=== PATIENT | female | born 1975 | race Caucasian/White ===

== ENCOUNTER → 2016-07-13 | Outpatient (CLI) | payer OTHER ==
[~2016-07-13] MED LIST: LEVO150T PO; MULTTAB58 PO; OMEP20CA9 PO; SERT50TA PO; VITAMIN B-12 OTC PO
--- NOTE | 2016-07-13 13:07 | DIAGNOSTIC IMAGING REPORT ---
MRI right knee RIGHT LOWER EXT JOINT WITHOUT CLINICAL HISTORY: RIGHT KNEE PAIN Right pain TECHNIQUE: MRI multi axial acquisition COMPARISON STUDY: 08/10/2013 FINDINGS: Signal characteristics the osseous structures are unremarkable throughout. There is no evidence for chondromalacia patella. The patellar retinaculum are intact. There is no significant popliteal cyst. Anterior and posterior cruciate ligaments are unremarkable. The collateral ligaments structures are intact. Evaluation of menisci shows both medial as well as lateral meniscus to be generally unremarkable in overall configuration. There is a very small hairline intrameniscal tear posterior horn medial meniscus. This does not extend to an articular services. IMPRESSION: 1. Very small hairline tear on an intrameniscal basis posterior horn medial meniscus. 2. This does not extend to an articular surface. 3. Study is otherwise unremarkable. Electronically signed by: Obey Hector M.D. 07/13/2016 1:05 PM Dictated Date/Time: 07/13/2016 1:00 PM
== END | disposition home or self-care (01) ==
LOC: C.MRI 12:12
PROVIDERS: ATTEND Orthopaedic Surgery
DX: M25.561 Pain in right knee (principal)

== ENCOUNTER → 2016-11-24 | Outpatient (CLI) | payer OTHER ==
[2016-11-24 10:01] LABS: CHOLESTEROL/HDL RATIO 2.9
== END | disposition home or self-care (01) ==
LOC: C.LAB 06:43
PROVIDERS: ATTEND Family Medicine
DX: Z13.220 Encounter for screening for lipoid disorders (principal)

== ENCOUNTER → 2016-12-20 | Outpatient (CLI) | payer OTHER ==
[2016-12-20 17:28] LABS: BASO % 0.5 %; BASO ABS # 0.04 K/uL (0-0.2); COMPLETE YES; EOS % 1.9 %; HEMATOCRIT 40.8 % (37-47); IG% 0.1 %; LYMPH % 38.3 %; MEAN CELL VOLUME 91.5 fL (80-100); MEAN CORPUSCULAR HEMOGLOBIN 30.5 pg (25-34); MEAN CORPUSCULAR HGB CONC 33.3 g/dl (32-36); MEAN PLATELET VOLUME 10.9 fL (7.4-10.4); MONO % 5.4 %; NEUT % 53.8 %; PLATELET COUNT 258 K/uL (130-400); RED BLOOD COUNT 4.46 M/uL (4.2-5.4)
[2016-12-20 18:07] LABS: ALT/SGPT 22 U/L (12-78); BLOOD UREA NITROGEN 19 mg/dl (7-18); BUN/CREATININE RATIO 15.9 (10-20); C-REACTIVE PROTEIN < 0.29 mg/dl (0-0.29); CARBON DIOXIDE 27 mmol/L (21-32); CHLORIDE 107 mmol/L (98-107); GLUCOSE 100 mg/dl (70-99); POTASSIUM 4.2 mmol/L (3.5-5.1); SODIUM 142 mmol/L (136-145)
[2016-12-20 18:18] LABS: ALB/GLOB RATIO 0.9 (0.9-2); ALKALINE PHOSPHATASE 50 U/L (45-117); AST/SGOT 16 U/L (15-37); RHEUMATOID FACTOR < 10.0 U/mL (0-15)
[2016-12-20 18:26] LABS: LYME DISEASE AB IGG NEG (NEG)
[2016-12-20 18:49] LABS: LYME DISEASE AB IGM POS (NEG)
[2016-12-23 03:44] LABS: ANTI-SS-A <1.0 NEG AI (<1.0 NEG); ANTI-SS-B <1.0 NEG AI (<1.0 NEG)
[2016-12-25 08:24] LABS: 18KDIGG BAND NONREACTIVE (NONREACTIVE); 23KDIGG BAND NONREACTIVE (NONREACTIVE); 23KDIGM BAND REACTIVE (NONREACTIVE); 28KDIGG BAND NONREACTIVE (NONREACTIVE); 30KDIGG BAND NONREACTIVE (NONREACTIVE); 39KDIGG BAND NONREACTIVE (NONREACTIVE); 39KDIGM BAND NONREACTIVE (NONREACTIVE); 41KDIGG BAND REACTIVE (NONREACTIVE); 41KDIGM BAND REACTIVE (NONREACTIVE); 45KDIGG BAND NONREACTIVE (NONREACTIVE); 58KDIGG BAND NONREACTIVE (NONREACTIVE); 66KDIGG BAND REACTIVE (NONREACTIVE); 93KDIGG BAND NONREACTIVE (NONREACTIVE)
== END | disposition home or self-care (01) ==
LOC: C.LAB 16:26
PROVIDERS: ATTEND Family Medicine
DX: M25.50 Pain in unspecified joint (principal); R53.83 Other fatigue

== ENCOUNTER → 2017-01-17 | Outpatient (CLI) | payer OTHER ==
--- NOTE | 2017-01-17 09:32 | DIAGNOSTIC IMAGING REPORT ---
L-SPINE MIN 4 VIEWS ROUTINE HISTORY: Pain LOW BACK PAIN COMPARISON: 05/01/2012 FINDINGS: There is no fracture. No subluxation. Disc spaces are preserved. IMPRESSION: No fracture or subluxation within the lumbar spine. The above report was generated using voice recognition software. It may contain grammatical, syntax or spelling errors. Electronically signed by: Obey Hector M.D. 01/17/2017 9:30 AM Dictated Date/Time: 01/17/2017 9:29 AM
== END | disposition home or self-care (01) ==
LOC: C.RADBC 09:03
PROVIDERS: ATTEND Family Medicine
DX: M54.5 Low back pain (principal)

== ENCOUNTER → 2017-02-02 | Outpatient (CLI) | payer OTHER | END | disposition home or self-care (01) | LOC: C.PAPS 12:07 | PROVIDERS: ATTEND Family Medicine | DX: Z12.72 Encounter for screening for malignant neoplasm of vagina (principal) ==

== ENCOUNTER → 2017-02-23 | Outpatient (CLI) | payer OTHER ==
--- NOTE | 2017-02-23 18:05 | DIAGNOSTIC IMAGING REPORT ---
LUMBAR SPINE W/O CONTRAST CLINICAL HISTORY: 41 years-old Female with LOW BACK PAIN, PARESHESIA OF SKIN, WEAKNESS. Chronic low back pain with acute radicular symptoms of the right lower extremity COMPARISON: Lumbar spine radiographs 01/17/2017 and 05/01/2012 TECHNIQUE: Multiplanar, multi sequence MRI of the lumbar spine was performed without intravenous contrast. FINDINGS: Vertebral body heights are well-maintained without compression deformity. No significant endplate degenerative changes, acute fracture or focal bone marrow edema of the lumbar spine. Mild endplate degenerative changes are seen at T10-T11. Synovial cyst posterior to the left facet at L4-L5 measures 7 x 5 x 10 mm nicely seen on image 22 series 5 and image 12 of series 4. No acute intra-abdominal, intrapelvic or paraspinal abnormality identified on these images. Conus medullaris terminates at L1. Signal within the cord is within normal limits. There are small perineural root sleeve cysts noted bilaterally at S1 and S2, nicely seen on the sagittal T2 fat saturation images. T12-L1: No central canal or neural foraminal stenosis. L1-L2: No central canal or neural foraminal stenosis. L2-L3: No central canal or neural foraminal stenosis. L3-L4: Mild disc desiccation and intervertebral disc space narrowing with broad-based posterior disc bulge. There is mild flattening of the ventral thecal sac without significant central canal or foraminal narrowing. Minimal facet spurring at this level. L4-L5: Mild disc desiccation and intervertebral disc space narrowing with broad-based posterior disc bulge which flattens the ventral thecal sac. No significant central canal narrowing. There is also mild facet arthrosis and ligamentum flavum thickening with resultant mild bilateral foraminal narrowing. L5-S1: No central canal or neural foraminal stenosis. IMPRESSION: 1. Mild disc desiccation, facet spurring and intervertebral disc space narrowing at L3-L4 and L4-L5 as above with mild bilateral foraminal narrowing at L4-L5. 2. No high-grade central canal or foraminal narrowing identified. 3. 10 mm synovial cyst is noted posterior to the left facet at L4-L5. The above report was generated using voice recognition software. It may contain grammatical, syntax or spelling errors. Electronically signed by: Nicholas Bustamante M.D. 02/23/2017 6:04 PM Dictated Date/Time: 02/23/2017 5:57 PM
== END | disposition home or self-care (01) ==
LOC: C.MRI 15:49
PROVIDERS: ATTEND Family Medicine
DX: M54.5 Low back pain (principal); R20.2 Paresthesia of skin; R53.1 Weakness

== ENCOUNTER → 2017-02-24 | Outpatient (CLI) | payer OTHER ==
--- NOTE | 2017-02-24 14:46 | DIAGNOSTIC IMAGING REPORT ---
CERVICAL SPINE 2 OR 3 VIEWS HISTORY: 41 years-old Female CERVICALGIA acute cervical pain with numbness of the right arm COMPARISON: MRI cervical spine 06/14/2012 TECHNIQUE: 3 views of the cervical spine FINDINGS: There is slight straightening of the normal cervical lordosis. Mild posterior intervertebral disc space narrowing at C4-C5. Mild multilevel uncovertebral spurring. There is mild facet arthrosis at C7-T1. No acute fracture or subluxation. Soft tissues are unremarkable. No prevertebral soft tissue swelling. IMPRESSION: 1. No acute fracture or subluxation. 2. Only minimal degenerative changes as above. The above report was generated using voice recognition software. It may contain grammatical, syntax or spelling errors. Electronically signed by: Nicholas Bustamante M.D. 02/24/2017 2:44 PM Dictated Date/Time: 02/24/2017 2:42 PM
--- NOTE | 2017-02-24 16:02 | DIAGNOSTIC IMAGING REPORT ---
MRI OF THE CERVICAL SPINE WITHOUT IV CONTRAST CLINICAL HISTORY: Neck pain. Right upper extremity weakness. COMPARISON STUDY: MRI of the cervical spine dated 06/14/2012. TECHNIQUE: MRI of the cervical spine is performed utilizing various T1 and T2-weighted sequences in the axial and sagittal planes. IV contrast was not administered for this examination. FINDINGS: Cervical spine: Vertebral body height and alignment are maintained throughout the cervical spine. There is straightening of the cervical lordosis with reversal centered at C4. No destructive bony process is seen. The atlantodental articulation appears maintained. The spinous processes are intact. No destructive bony lesion is identified. Intervertebral discs: Mild disc desiccation is noted. The intervertebral discs are normal in height. Spinal cord: The cervical spinal cord is normal in morphology and signal intensity. C2-C3: Unremarkable. C3-C4: Unremarkable. C4-C5: Unremarkable. C5-C6: Unremarkable. C6-C7: Minimal facet arthropathy is of no consequence. The central canal and neural foramina are patent. C7-T1: Unremarkable. Soft tissues: The prevertebral and paraspinous soft tissues are normal as visualized. Brain parenchyma: Partially imaged brain parenchyma at the skull base is normal in appearance. IMPRESSION: 1. There is no disc herniation, central canal stenosis, or neural foraminal narrowing seen throughout the cervical spine. 2. The cervical spinal cord is normal in morphology and signal intensity. 3. No destructive bony process is seen. Dictated: 02/24/2017 3:50 PM Transcribed: 02/24/2017 4:01 PM [email or web address] Electronically signed by: Nicola Gomez M.D. 02/24/2017 4:02 PM Dictated Date/Time: 02/24/2017 3:50 PM
== END | disposition home or self-care (01) ==
LOC: C.MRI 14:17
PROVIDERS: ATTEND Family Medicine
DX: R20.2 Paresthesia of skin (principal); R53.1 Weakness; M54.2 Cervicalgia

== ENCOUNTER → 2017-03-25 | Outpatient (CLI) | payer OTHER ==
--- NOTE | 2017-03-29 13:37 | MAMMOGRAPHY REPORT ---
BILATERAL DIGITAL SCREENING MAMMOGRAM TOMOSYNTHESIS WITH CAD: 03/25/2017 CLINICAL HISTORY: Routine screening. Baseline exam. TECHNIQUE: Breast tomosynthesis in addition to standard 2D mammography was performed. Current study was also evaluated with a Computer Aided Detection (CAD) system. COMPARISON: No prior exams were available for comparison. BREAST COMPOSITION: There are scattered areas of fibroglandular density in both breasts. FINDINGS: No suspicious masses, calcifications, or areas of architectural distortion are noted in ei ther breast. IMPRESSION: ACR BI-RADS CATEGORY 1: NEGATIVE There is no mammographic evidence of malignancy. A 1 year screening mammogram is recommended. The pa tient will receive written notification of the results. Approximately 10% of breast cancers are not detected with mammography. A negative mammographic report should not delay biopsy if a clinically suggestive mass is present. Jessica Teixeira M.D. /:03/25/2017 13:36:14 Title Specialist: Christiane ARENAS(Mau)(Raffi), [facility] letter sent: Normal 1/2 BI-RADS Code: ACR BI-RADS Category 1: Negative
== END | disposition home or self-care (01) ==
LOC: C.MAMM 12:20
PROVIDERS: ATTEND Family Medicine
DX: Z12.31 Encounter for screening mammogram for malignant neoplasm of breast (principal)

== ENCOUNTER → 2017-03-30 | Outpatient (CLI) | payer OTHER ==
[2017-03-30 17:17] LABS: BASO % 0.2 %; BASO ABS # 0.02 K/uL (0-0.2); EOS % 0.6 %; EOS ABS # 0.06 K/uL (0-0.5); HEMOGLOBIN 14.6 g/dL (12.0-16.0); IG# 0.03 K/uL (0.00-0.02); LYMPH ABS # 3.13 K/uL (1.2-3.4); MEAN CELL VOLUME 90.3 fL (80-100); MEAN CORPUSCULAR HEMOGLOBIN 30.7 pg (25-34); MEAN PLATELET VOLUME 10.7 fL (7.4-10.4); MONO % 6.1 %; NEUT % 60.8 %; NEUT ABS # 5.95 K/uL (1.4-6.5); PLATELET COUNT 270 K/uL (130-400); RED CELL DISTRIBUTION WIDTH CV 12.8 % (11.5-14.5); RED CELL DISTRIBUTION WIDTH SD 42.3 fL (36.4-46.3); WHITE BLOOD COUNT 9.79 K/uL (4.8-10.8)
[2017-04-04 02:39] LABS: ANA SCREEN TC 249X NEGATIVE (NEGATIVE)
== END | disposition home or self-care (01) ==
LOC: C.LAB 16:40
PROVIDERS: ATTEND Orthopaedic Surgery Orthopaedic Surgery of the Spine
DX: M25.50 Pain in unspecified joint (principal); R20.0 Anesthesia of skin

== ENCOUNTER → 2017-11-07 | Outpatient (CLI) | payer OTHER ==
[~2017-11-07] MED LIST changes: +GADAVIST IV PRN
--- NOTE | 2017-11-07 12:21 | DIAGNOSTIC IMAGING REPORT ---
R UPPER EXT JOINT WITH CLINICAL HISTORY: 41 years-old Female presenting with HIP PAIN, hip instability, piriformis pain, right leg reticular apices, asymmetric gluteal folds. TECHNIQUE: Multisequence, multiplanar MR imaging of the right hip was performed after the administration of intra-articular contrast. IV contrast: None. COMPARISON: Plain radiographs of the right hip from 10/26/2017. FINDINGS: Localizer images: Gluteal muscle complexes symmetric bilaterally. Piriformis muscles are symmetric bilaterally. Bone marrow: Normal bone marrow signal intensity. No bony edema. Articular cartilage: Articular cartilage preserved. Labrum: Acetabular labrum intact. No evidence of labral tear, chondrolabral separation or paralabral cyst. Bursae: No pathologic distention of the iliopsoas or trochanteric bursae. Joint effusion: No significant hip joint effusion. Sciatic nerve: Normal appearance of the sciatic nerve. Muscle: Normal muscle bulk and muscle signal intensity. Pelvis: Intrapelvic contents demonstrate a normal-appearing uterus, ovaries, bladder, and bowel. No free fluid. Superficial soft tissue: No subcutaneous edema. IMPRESSION: 1. No evidence of soft tissue injury. Normal MR examination of the right hip. 2. Gluteal muscle complexes symmetric bilaterally without evidence of asymmetric atrophy on the right. Electronically signed by: Guille Tay M.D. 11/07/2017 12:20 PM Dictated Date/Time: 11/07/2017 12:12 PM
--- NOTE | 2017-11-07 12:45 | DIAGNOSTIC IMAGING REPORT ---
R INJECTION HIP PRE MRI CLINICAL HISTORY: 41 years-old Female presenting with RIGHT HIP ARTHROGRAM PRE MRI. COMPARISON: 10/26/2017. PROCEDURE: The risks, benefits, and alternatives to the procedure were discussed with the patient. Written informed consent was obtained. The patient was placed supine on the fluoroscopy table, and a right hip injection was performed under fluoroscopic guidance. The area was prepped and draped in the usual sterile fashion. The skin and soft tissues anesthetized with local 1% lidocaine. The right hip joint was accessed utilizing a 22-gauge needle, and approximately 12 cc of a mixture of gadolinium contrast, Optiray 300, and saline was injected into the joint space under fluoroscopic guidance. There was normal distention of the capsule. The procedure was well tolerated without immediate complication. The patient was then transferred to MRI for MR arthrography. Fluoroscopy dosage (mGy): Not available. Fluoroscopy time: 8 seconds. Number or time of fluoroscopic spot images: 0. IMPRESSION: Successful injection of the right hip under fluoroscopic guidance. Electronically signed by: Guille Tay M.D. 11/07/2017 12:44 PM Dictated Date/Time: 11/07/2017 12:43 PM
== END | disposition home or self-care (01) ==
LOC: C.MRIBC 09:47
PROVIDERS: ATTEND Orthopaedic Surgery
DX: M25.551 Pain in right hip (principal)